=== PATIENT | male | born 1955 | race Caucasian/White ===

== ENCOUNTER → 2018-11-11 | Outpatient (CLI) | payer BC ==
--- NOTE | 2018-11-11 10:42 | US ---
EXAMINATION TYPE: US prostate transrectal DATE OF EXAM: 11/11/2018 COMPARISON: NONE CLINICAL HISTORY: N13.8 Benign prostatic hyperplasia. Urinary frequency, BPH This examination was performed using the transrectal probe. EXAM MEASUREMENTS: Gland Size: 4.9 x 2.5 x 5.2cm Volume: 33.4ml Predicted PSA: 4.0 Actual PSA (if available):2.1 Heterogeneous gland. Possible hypoechoic area within peripheral zone = 0.6 x 0.3 x 0.5cm. Hypoechoic area = 0.7cm within central zone IMPRESSION: 1. Glandular heterogeneity. Follow-up study in 6 months is advised as well as follow-up PSA. Predicted PSA = volume x 0.12 ng/ml Calculated Volume = 0.5236 x L x W x H
== END ==
LOC: RADUSMAIN 07:51
PROVIDERS: ATTEND Family Medicine
DX: R93.49 Abnormal radiologic findings on diagnostic imaging of other urinary organs (principal)
CPT/HCPCS: 76872

== ENCOUNTER → 2019-04-04 | Outpatient (CLI) | payer BC ==
--- NOTE | 2019-04-04 09:55 | US ---
EXAMINATION TYPE: US groin LT DATE OF EXAM: 04/04/2019 COMPARISON: NONE CLINICAL HISTORY: R10.2 pelvic and perineal pain. Patient had a hernia repair in 05. 2 weeks ago patient felt pop when running and has had pain since. At area of pain in left groin is a hypoechoic area adjacent to EIV. There is shadowing present. No definable mass however. IMPRESSION: Abnormal echogenic appearance in the left groin with shadowing. CT scan likely would be of benefit. Cannot exclude recurrent hernia, consider surgical consult, limited exam.
--- NOTE | 2019-04-04 11:27 | US ---
EXAMINATION TYPE: US prostate transrectal DATE OF EXAM: 04/04/2019 COMPARISON: NONE CLINICAL HISTORY: R97.20 elevated PSA. This examination was performed using the transrectal probe. EXAM MEASUREMENTS: Gland Size: 3.7 x 2.6 x 5.1cm Volume: 24.9 Predicted PSA: 2.98 Actual PSA (if available):1.8 Previous PSA --19- 2.1 Heterogeneous gland. Hypoechoic area left again visualized, difficult to ascertain whether this is in the peripheral or central zone. Lesion measures 0.4 x 0.3 x 0.5cm. Previously measured at 0.6 x 0.3 x 0.5cm Seminal vesicles remain somewhat bulky. Prostate gland is overall normal in size on today's measureme nts and heterogeneous in appearance with persistent 5 mm left-sided hypoechoic nodule felt to be in t he posterior central zone left lateral aspect towards the apex. IMPRESSION: Heterogeneous prostate gland with persistent suspicious 5 mm hypoechoic nodule lateral l eft posterior central zone near apex. Predicted PSA = volume x 0.12 ng/ml Calculated Volume = 0.5236 x L x W x H
== END | disposition home or self-care (01) ==
LOC: RADUSMAIN 07:47
PROVIDERS: ATTEND Family Medicine
DX: N40.2 Nodular prostate without lower urinary tract symptoms (principal); R93.89 Abnormal findings on diagnostic imaging of other specified body structures
CPT/HCPCS: 76872

== ENCOUNTER → 2019-07-01 | Outpatient (CLI) | payer BC ==
--- NOTE | 2019-07-01 10:44 | CT ---
EXAMINATION TYPE: CT pelvis w con DATE OF EXAM: 07/01/2019 COMPARISON: None INDICATION: LT groin pain. Pt states it feels like something is falling out, especially w/physical ac tivity. Hx inguinal hernia sx DLP: 437.20 mGycm, Automated exposure control for dose reduction was used. CONTRAST: 100 mL of Isovue 300. Study performed with Oral Contrast TECHNIQUE: Axial images were obtained from above the iliac crests to the pubic rami in the axial plan e at 5 mm thick sections. Reconstructed images are reviewed on the computer in the coronal plane. FINDINGS: CT PELVIS: Loops of bowel within the abdomen and pelvis are normal. There are loops of bowel which are incom pletely distended or lack oral contrast limiting their evaluation. Appendix: Not identified. Urinary bladder: Normal. Genitourinary structures: Prostate is prominent. This may have impression on the urinary bladder. Sil luation urinary bladder may be useful. No suspicious inguinal hernias are present. Loops of bowel extending towards inguinal regions. No ing uinal adenopathy is evident. No cystocele is evident. No rectocele was evident. Peroneal where appear s normal. Osseous structures: No suspicious lytic or sclerotic lesions. IMPRESSIONS: 1. No suspicious hernia is identified. 2. Prominent prostate which may have inferior impression on urinary bladder. Additional workup of the urinary bladder is recommended
== END | disposition home or self-care (01) ==
LOC: RADCTMAIN 08:01
PROVIDERS: ATTEND Surgery
DX: R10.30 Lower abdominal pain, unspecified (principal)
CPT/HCPCS: 72193; Q9967

== ENCOUNTER → 2020-10-08 | Outpatient (CLI) | payer OTHER, MEDICARE ==
--- NOTE | 2020-10-08 13:01 | US ---
EXAMINATION TYPE: US kidneys/renal and bladder DATE OF EXAM: 10/08/2020 COMPARISON: NONE CLINICAL HISTORY: R10.9 R Flank pain, N40.1 Benign prostatic hyperplasia. EXAM MEASUREMENTS: Right Kidney: 11.0 x 4.2 x 4.4 cm Left Kidney: 11.0 x 5.0 x 5.1 cm Right Kidney: tiny echogenic foci ?stones vs calcified arteries Left Kidney: mid cysts largest measuring 1.4 x 1.3 x 1.2cm Bladder: wnl IMPRESSION: 1. Tiny nonobstructing calcifications within the right kidney. Vascular calcification could be consid ered within the differential. 2. Left renal cyst
== END | disposition home or self-care (01) ==
LOC: RADUSWWP 11:59
PROVIDERS: ATTEND Urology
DX: N28.1 Cyst of kidney, acquired (principal); N40.1 Benign prostatic hyperplasia with lower urinary tract symptoms
CPT/HCPCS: 76770

== ENCOUNTER → 2020-10-11 | Outpatient (CLI) | payer OTHER, MEDICARE ==
[2020-10-11 10:13] LABS: Basophils # (A) 0.1 k/uL (0-0.2); Basophils % (A) 1 %; Eosinophils # (A) 0.1 k/uL (0-0.7); Eosinophils % (A) 2 %; HCT 46.5 % (39.0-53.0); HGB 15.9 gm/dL (13.0-17.5); Lymphocytes # (A) 1.4 k/uL (1.0-4.8); Lymphocytes % (A) 18 %; MCH 30.7 pg (25.0-35.0); MCHC 34.3 g/dL (31.0-37.0); MCV 89.6 fL (80.0-100.0); Mean Platelet Volume 7.5; Monocytes # (A) 0.5 k/uL (0-1.0); Monocytes % (A) 7 %; Neutrophils # (A) 5.7 k/uL (1.3-7.7); Neutrophils % (A) 72 %; Platelet Count 196 k/uL (150-450); RBC 5.19 m/uL (4.30-5.90); RDW 12.2 % (11.5-15.5); WBC 7.9 k/uL (3.8-10.6)
[2020-10-11 10:25] LABS: African American GFR (CKD) >90 (>60 ml/min/1.73 sqM); Anion Gap 5 mmol/L; Blood Urea Nitrogen 22 mg/dL (9-20); Calcium 9.4 mg/dL (8.4-10.2); Carbon Dioxide 29 mmol/L (22-30); Chloride 104 mmol/L (98-107); Glucose 115 mg/dL (74-99); Non-African American GFR(CKD) 86 (>60 ml/min/1.73 sqM); Potassium 4.6 mmol/L (3.5-5.1); Sodium 138 mmol/L (137-145)
== END | disposition home or self-care (01) ==
LOC: LABPAT 09:45
PROVIDERS: ATTEND Urology
DX: Z01.818 Encounter for other preprocedural examination (principal); N40.1 Benign prostatic hyperplasia with lower urinary tract symptoms; R53.83 Other fatigue
CPT/HCPCS: 36415; 80048; 85025; 93005

== ENCOUNTER → 2020-10-17 | Day surgery (SDC) | payer OTHER, MEDICARE ==
[2020-10-14 12:55] VITALS: BMI 25.0
--- NOTE | 2020-10-15 13:11 | P.GSHP ---
History of Present Illness H&P Date: 10/10/20 Chief Complaint: Weak urinary stream The patient is a 64-year-old white male with a history of BPH. He is currently taking tamsulosin but continues to empty his bladder incompletely. He underwent a prostate ultrasound in May 2019. The prostate volume was 41 mL, and biop sies were negative. His most recent PSA level is 3.1. - Constitutional Constitutional: Denies weight gain, Denies weight loss - Genitourinary (Male) Genitourinary: Reports nocturia, Reports urinary frequency Past Medical History Additional Past Medical History / Comment(s): INHALED FIBERGLASS INSULATION APRIL 2013 AND COUGH UP CLEAR SECRETIONS- WAITING TO HAVE CT SCAN., ABRASION LEFT HAND. History of Any Multi-Drug Resistant Organisms: None Reported Past Surgical History: Hernia Repair Additional Past Surgical History / Comment(s): LEFT ING. HERNIA, COLONOSCOPY. Past Anesthesia/Blood Transfusion Reactions: No Reported Reaction Past Psychological History: No Psychological Hx Reported Past Alcohol Use History: Rare Additional Past Alcohol Use History / Comment(s): SMOKED FROM AGE 14 -18 YRS OLD- 1PPD, OCCASIONAL CIGARS BUT NONE IN 15 YEARS. Past Drug Use History: None Reported - Past Family History Father Family Medical History: CVA/TIA Additional Family Medical History / Comment(s): BRAIN TUMOR Mother Family Medical History: CVA/TIA Medications and Allergies Home Medications Medication Instructions Recorded Confirmed Type Cholecalciferol [Vitamin D3 (25 2,000 unit PO DAILY 10/14/20 10/14/20 History Mcg = 1000 Iu)] Tamsulosin HCl [Flomax] 0.4 mg PO HS 10/14/20 10/14/20 History Zinc(Dose Unknown) 1 tab PO DAILY 10/14/20 10/14/20 History Allergies Allergy/AdvReac Type Severity Reaction Status Date / Time No Known Allergies Allergy Verified 10/14/20 12:34 Surgical - Exam - General well developed, well nourished, no distress - Neck no masses, trachea midline - Respiratory normal respiratory effort - Abdomen Abdomen: soft, non tender, no guarding, no rigid, no rebound - Genitourinary normal penis with no external lesions, testicles non-tender - Rectum Rectum: normal sphincter tone, no masses, other (Prostate moderately enlarged and smooth) - Psychiatric oriented to time, oriented to person, oriented to place, speech is normal, memory intact Assessment and Plan (1) Benign prostatic hyperplasia with lower urinary tract symptoms Status: Acute Code(s): N40.1 - BENIGN PROSTATIC HYPERPLASIA WITH LOWER URINARY TRACT SYMP SNOMED Code(s): 881452601 Plan: Cystoscopy, TURP. I discussed the options concerning surgery versus medication. I advised him with regard to TURP as opposed to minimally invasive procedures such as Urolift. Potential risks were discussed, including anesthesia, bleeding, infection, retrograde ejaculation, incontinence, erectile dysfunction, and vesical neck contracture. He may require admission post-operatively, likely for one night.
[~2020-10-17] MED LIST: DEXAMETHASONE SOD PHOSPHATE 4 MG/ML 1 ML VIAL IV ONE; FUROSEMIDE 10 MG/ML 2 ML VIAL ONE; GLYCOPYRROLATE 0.2 MG/ML 2 ML VIAL ONE; HYDROmorphone 0.5 MG/0.5 ML SYRINGE IVP PRN; LACTATED RINGERS 1,000 ML IV ONE; LACTATED RINGERS 1,000 ML IV SCH; LIDOCAINE 1% (10MG/ML) FOR IV START INTRADERMA ONE; LIDOCAINE 1% INJ 10MG/ML (20 ML MDV) ONE; MIDAZOLAM 2 MG/2 ML VIAL ONE; NEOSTIGMINE 1 MG/ML 10 ML VIAL ONE; ONDANSETRON 4 MG/2 ML VIAL IVP ONE; PROPOFOL 10 MG/ML 20 ML VIAL IV ONE; ROCURONIUM 10 MG/ML (10 ML VIAL) IV ONE; SUCCINYLCHOLINE CHLORIDE 100 MG/5 ML SYR IV ONE; ePHEDrine SULFATE/0.9% NACL/PF 50 MG/5 ML SYRINGE IV ONE; fentaNYL (PF) 50 MCG/ML 2 ML AMP ONE
--- NOTE | 2020-10-17 13:24 | P.OP ---
Date of Procedure: 10/17/20 Preoperative Diagnosis: BPH with obstruction Postoperative Diagnosis: Same Procedure(s) Performed: Cystoscopy, bipolar transurethral resection of prostate (TURP) Anesthesia: PAYTON Surgeon: Issa Adam Estimated Blood Loss (ml): 75 IV fluids (ml): 500 Pathology: other (Prostate chips) Condition: stable Disposition: PACU Indications for Procedure: The patient is a 64-year-old white male with a history of BPH. He is currently taking tamsulosin but continues to empty his bladder incompletely. He underwent a prostate ultrasound in May 2019. The prostate volume was 41 mL, and biopsies were negative. His most recent PSA level is 3.1. Operative Findings: Trilobar BPH Description of Procedure: The patient was taken in the operating room and placed in the dorsolithotomy position. The external genitalia was prepped and draped sterilely. The 25- Israeli [employer] resectoscope sheath was introduced into the bladder. The bladder was inspected. Both ureteral orifices were of normal anatomic location and configuration, and clear urine effluxed from both. No tumors or foreign bodies were seen. Examination of the prostate revealed complete obstruction with a trilobar configuration. Using the bipolar cutting loop, the lateral lobes were resected down to the surgical capsule. The floor of the prostate was then resected, proximal to the verumontanum. Lastly, any remaining anterior tissue was resected. The residual apical tissue was then carefully resected to avoid injury to the external urinary sphincter. The resection was carried down to the surgical capsule in all 4 quadrants. The prostatic fossa was then carefully examined, and any areas of bleeding were controlled with electrocautery. Excellent hemostasis was attained. The resectoscope was withdrawn into the bulbous urethra. The external urinary sphincter remained intact. The prostatic fossa was open. The [employer] evacuator was used to remove all prostate chips from the bladder. These were saved and sent for pathologic examination. The resectoscope was removed, and a 20 Israeli Chávez catheter was placed. The return was essentially clear. The patient tolerated the procedure well was taken to the recovery room in stable condition.
[2020-10-17 13:34] VITALS: TEMP 97.4
[2020-10-17 14:15] VITALS: RESP 20
[2020-10-17 15:40] VITALS: BP 121/88; PULSE 62
== END | disposition home or self-care (01) ==
LOC: OR 06:11
PROVIDERS: ATTEND Urology
DX: N40.1 Benign prostatic hyperplasia with lower urinary tract symptoms (principal); N13.8 Other obstructive and reflux uropathy; M19.90 Unspecified osteoarthritis, unspecified site; K21.9 Gastro-esophageal reflux disease without esophagitis; Z79.899 Other long term (current) drug therapy; Z98.890 Other specified postprocedural states; Z87.891 Personal history of nicotine dependence; Z82.49 Family history of ischemic heart disease and other diseases of the circulatory system; Z80.8 Family history of malignant neoplasm of other organs or systems
CPT/HCPCS: 52601; J2250; J1100; J1940; J2710; J0690; J2405; J2001; J3010; J0330; J2704; 88305

== ENCOUNTER → 2021-02-17 | Outpatient (CLI) | payer MEDICARE ==
--- NOTE | 2021-02-18 04:29 | MR ---
EXAMINATION TYPE: MR neck wo/w con DATE OF EXAM: 02/17/2021 COMPARISON: None HISTORY: Soft tissue mass on back of neck at base of head, marker placed. CONTRAST: Standard multiplanar, multisequence MRI departmental protocol utilizing 7 mL intravenous Gadavist deandre olinium contrast. There is a 3.7 x 2.7 cm septated rounded appearing mass in the subcutaneous tissues at the posterior base of the neck. This is within the subcutaneous fat. This has high signal on T1 and T2 images. Ther e is no enhancement. The wall is thin. This has very low signal on fat suppression images and is cons istent with ordinary lipoma. There is no evidence of a posterior fossa mass. Visualized brainstem is intact. Sella turcica appears normal. Trachea appears intact. There is no evidence of paratracheal mass. The posterior muscles of the neck are fairly symmetric. 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
== END | disposition home or self-care (01) ==
LOC: RADMRIMAIN 20:30
PROVIDERS: ATTEND Otolaryngology Facial Plastic Surgery
DX: R22.1 Localized swelling, mass and lump, neck (principal)
CPT/HCPCS: 70543; A9585